=== PATIENT | female | born 1990 | race Caucasian/White ===

== ENCOUNTER 2018-03-13 16:03 | Emergency (ER) | payer OTHER ==
[2018-03-13 18:49] VITALS: BP 132/51
--- NOTE | 2018-03-13 19:18 | UC ---
HPI Wound/Suture Re-check - HPI Summary HPI Summary: Per marketing and communications officer "patient has 11 sutures to right lower leg placed by [facility] on . " -no bleeding. no redness. no dc. no sign of infection. -here w/ her BF Benjamin -she is very squeemish and doesnt want to watch. -she got a lac to her rt leg while she was drunk. - History Of Current Complaint Chief Complaint: UCLaceration Stated Complaint: STITCHES REMOVAL (DONE @[facility]) Time Seen by Provider: 03/13/18 18:44 Hx Last Menstrual Period: 04/29/15 Pain Intensity: 0 - Allergies/Home Medications Allergies/Adverse Reactions: Allergies Allergy/AdvReac Type Severity Reaction Status Date / Time No Known Allergies Allergy Verified 03/13/18 18:43 Home Medications: Home Medications NK [No Home Medications Reported] 03/13/18 [History Confirmed 03/13/18] PMH/Surg Hx/FS Hx/Imm Hx Previously Healthy: Yes - Surgical History Surgical History: None - Social History Alcohol Use: Occasionally Substance Use Type: None Smoking Status (MU): Former Smoker Type: Cigarettes Amount Used/How Often: WITH ALCOHOL Length of Time of Smoking/Using Tobacco: 5 YRS - Immunization History Vaccination Up to Date: Yes Review of Systems All Other Systems Reviewed And Are Negative: Yes Constitutional: Positive: Negative Skin: Positive: Negative Eyes: Positive: Negative ENT: Positive: Negative Respiratory: Positive: Negative Cardiovascular: Positive: Negative Gastrointestinal: Positive: Negative Genitourinary: Positive: Negative Motor: Positive: Negative Neurovascular: Positive: Negative Musculoskeletal: Positive: Negative Neurological: Positive: Negative Psychological: Positive: Negative Is Patient Immunocompromised?: No Physical Exam Triage Information Reviewed: Yes Appearance: Well-Appearing Vital Signs: Initial Vital Signs Temp 97.6 F 03/13/18 18:43 Pulse 75 03/13/18 18:43 Resp 16 03/13/18 18:43 BP 132/51 03/13/18 18:43 Pulse Ox 100 03/13/18 18:43 Skin: Positive: Other - right lateral calf w/ well healed scar. 11 sutures intact and reocved w/o incident. no bleeding. no s/s of infection. Course/Dx - Course Course Of Treatment: 11 sutures removed w/o difficulty or incident. tolerated well. - Differential Dx - Laceration/Wound Differential Diagnoses: Suture Removal - Diagnosis Provider Diagnosis: Visit for suture removal Discharge - Sign-Out/Discharge Documenting (check all that apply): Patient Departure All imaging exams completed and their final reports reviewed: No Studies - Discharge Plan Condition: Stable Disposition: HOME Patient Education Materials: Stitches Removal (ED) Referrals: No Primary Care Phys,NOPCP [Primary Care Provider] - - Billing Disposition and Condition Condition: STABLE Disposition: Home
== END 2018-03-13 19:23 | disposition home or self-care (01) ==
LOC: UCCORT 16:03
DX: S81.811D Laceration without foreign body, right lower leg, subsequent encounter (principal); Z87.891 Personal history of nicotine dependence; X58.XXXD Exposure to other specified factors, subsequent encounter
CPT/HCPCS: 99211; G0463